=== PATIENT | female | born 1930 | race Caucasian/White ===

== ENCOUNTER 2017-03-01 10:09 | Emergency (ER) | payer MEDICARE, OTHER ==
[~2017-03-01] VITALS: Ht 167.6 cm; Wt 79.0 kg
[~2017-03-01 10:09] MED LIST: HYZA100T4 PO; SYNT25TA PO
[2017-03-01] MEDS ORDERED: HYZA100T2 PO (10:16)
[2017-03-01] MEDS ORDERED: SYNT25TA PO (10:16)
[2017-03-01 10:17] VITALS: BP 180/76; PULSE 72; RESP 16; TEMP 98; O2SAT 96
[2017-03-01] MEDS ORDERED: ASPIRIN 81 MG CHEW TAB PO ONE (10:30)
[2017-03-01] MEDS ORDERED: SODIUM CHLORIDE 0.9% FLUSH 10 ML FLUSH IVF PRN (10:30)
[2017-03-01] MEDS ORDERED: NITROGLYCERIN 0.4 MG SL 25 TABS/BTL SL ONE (10:30)
--- NOTE | 2017-03-01 10:32 | PD ---
HPI Chief Complaint: Chest Pain Time Seen by Provider: 10:15 Travel History International Travel<30 days: No Contact w/Intl Traveler<30days: No Traveled to known affect area: No History of Present Illness HPI This is an 86-year-old female who presents to the emergency department with chest discomfort in her left chest described as twinges of pain that lasts for several seconds and then subsides radiating to her left arm. She says it happens at rest. She denies any associated shortness of breath, nausea or diaphoresis. She feels well otherwise and just put down 110 pounds of mulch in her yard. She's never had a stress test. She is very healthy. She does have a history of hypertension for which she takes Cozaar. She denies any history of diabetes, hyperlipidemia and she has never smoked or drank alcohol. PFSH Past Medical History Hx Anticoagulant Therapy: No Cancer: No Cardiovascular Problems: Yes (HTN) Diabetes: No Diminished Hearing: No Diverticulitis: Yes Endocrine: Yes Gastrointestinal Disorders: No Genitourinary: No Hypertension: Yes Implanted Vascular Access Dvce: No Musculoskeletal: No (PAGETS DISEASE. ) Neurologic: No Psychiatric: No Reproductive: No Respiratory: Yes (COUGH SINCE CHILDHOOD) Thyroid Disease: Yes Tetanus Vaccination: < 5 Years ?: Not Menopausal: Yes Past Surgical History Appendectomy: Yes Cholecystectomy: Yes Hysterectomy: Yes Other Surgery: No Social History Alcohol Use: No Tobacco Use: No Substance Use: No Allergies-Medications (Allergen,Severity, Reaction): Coded Allergies: Penicillin (Verified Allergy, Severe, 03/01/17) Reported Meds & Prescriptions Reported Meds & Active Scripts Active Reported Hyzaar (Losartan-Hydrochlorothiazide) 100-12.5 Mg Tab 1 Tab PO DAILY Synthroid (Levothyroxine Sodium) 25 Mcg Tab 25 Mcg PO DAILY Review of Systems Except as stated in HPI: all other systems reviewed are Neg Physical Exam Narrative GENERAL:Well appearing, no acute distress SKIN: Focused skin assessment warm and dry. HEAD: Atraumatic. Normocephalic. EYES: Pupils equal and round. No injection or drainage. ENT: Moist mucous membranes NECK: Trachea midline. CARDIOVASCULAR: Regular rate and rhythm. No murmur appreciated. RESPIRATORY: Clear to auscultation. Breath sounds equal bilaterally. GASTROINTESTINAL: Abdomen soft, non-tender, nondistended. MUSCULOSKELETAL: No obvious deformities. NEUROLOGICAL: Awake and alert. No obvious cranial nerve deficits. Moving all extremities. PSYCHIATRIC: Appropriate mood and affect; insight and judgment normal. Data Data Last Documented VS Vital Signs Date Time Temp Pulse Resp B/P Pulse Ox O2 Delivery O2 Flow Rate FiO2 03/01/17 10:38 63 16 131/67 96 Nasal Cannula 2 114/62 03/01/17 10:17 98.0 Orders Electrocardiogram (03/01/17 10:25) Complete Blood Count With Diff (03/01/17 10:25) Comprehensive Metabolic Panel (03/01/17 10:25) Troponin I (03/01/17 10:25) Chest, Single Ap (03/01/17 10:25) Ecg Monitoring (03/01/17 10:25) Bilateral Bp Monitoring (03/01/17 10:25) Iv Access Insert/Monitor (03/01/17 10:25) Oximetry (03/01/17 10:25) Oxygen Administration (03/01/17 10:25) Aspirin Chew (Aspirin Chew) (03/01/17 10:30) Sodium Chloride 0.9% Flush (Ns Flush) (03/01/17 10:30) Nitroglycerin Sl (Nitrostat Sl) (03/01/17 10:30) Labs Laboratory Tests Test 03/01/17 10:25 White Blood Count 5.8 TH/MM3 Red Blood Count 4.81 MIL/MM3 Hemoglobin 14.7 GM/DL Hematocrit 44.0 % Mean Corpuscular Volume 91.3 FL Mean Corpuscular Hemoglobin 30.5 PG Mean Corpuscular Hemoglobin 33.4 % Concent Red Cell Distribution Width 13.3 % Platelet Count 193 TH/MM3 Mean Platelet Volume 9.3 FL Neutrophils (%) (Auto) 53.5 % Lymphocytes (%) (Auto) 33.3 % Monocytes (%) (Auto) 8.4 % Eosinophils (%) (Auto) 3.6 % Basophils (%) (Auto) 1.2 % Neutrophils # (Auto) 3.1 TH/MM3 Lymphocytes # (Auto) 1.9 TH/MM3 Monocytes # (Auto) 0.5 TH/MM3 Eosinophils # (Auto) 0.2 TH/MM3 Basophils # (Auto) 0.1 TH/MM3 CBC Comment DIFF FINAL Differential Comment Sodium Level 142 MEQ/L Potassium Level 3.7 MEQ/L Chloride Level 106 MEQ/L Carbon Dioxide Level 29.3 MEQ/L Anion Gap 7 MEQ/L Blood Urea Nitrogen 19 MG/DL Creatinine 0.93 MG/DL Estimat Glomerular Filtration 57 ML/MIN Rate Random Glucose 106 MG/DL Calcium Level 9.1 MG/DL Total Bilirubin 0.4 MG/DL Aspartate Amino Transf 19 U/L (AST/SGOT) Alanine Aminotransferase 22 U/L (ALT/SGPT) Alkaline Phosphatase 154 U/L Troponin I LESS THAN 0.02 NG/ML Total Protein 7.7 GM/DL Albumin 4.0 GM/DL MDM Medical Decision Making Medical Screen Exam Complete: Yes Emergency Medical Condition: Yes Interpretation(s) Afebrile, no tachycardia, hypertensive No leukocytosis Electrolytes are reassuring Troponin is normal Chest x-ray: No acute process EKG: Normal sinus rhythm with no ST changes Differential Diagnosis Acute coronary syndrome, GERD, pulmonary embolism, anxiety Narrative Course This is a vibrant 86-year-old female who presents to the emergency department with atypical left-sided. She was placed on a monitor and an IV was established. EKG was nonischemic. She was given aspirin and nitroglycerin. Labs were obtained which were reassuring. She has a HEART score of 3 placing her in a low risk category for acute coronary syndrome. I had a long conversation with the patient. I offered her observation for stress testing. She really doesn't want to stay in the hospital. She says whatever happens "is in the Lord's hands". I still encouraged her to get a stress test as an outpatient. Patient will be discharged to her preference to follow-up with her primary care physician. Diagnosis Primary Impression: Atypical chest pain Patient Instructions: General Instructions Additional Instructions: If you develop severe chest pain, shortness of breath, sweating, lightheadedness , dizziness or difficulty breathing return to the emergency department immediately. Followup with your primary care physician in 2-3 days if your symptoms are not resolved. Get a stress test done by your primary care physician. Med/Other Pt SpecificInfo: No Change to Meds Disposition: 01 DISCHARGE HOME Condition: Stable Amee Skinner MD Mar 01, 2017 10:32
[2017-03-01 10:35] VITALS: RESP 16; O2SAT 95
[2017-03-01 10:37] LABS: AUTOMATED NEUTROPHIL # 3.1 TH/MM3 (1.8-7.7); BASOPHIL # 0.1 TH/MM3 (0-0.2); BASOPHIL % 1.2 % (0.0-2.0); EOSINOPHIL # 0.2 TH/MM3 (0-0.4); EOSINOPHIL % 3.6 % (0.0-4.0); HEMO FLAGS DIFF FINAL; LYMPH % 33.3 % (9.0-44.0); LYMPHOCYTE # 1.9 TH/MM3 (1.0-4.8); MEAN CELL VOLUME 91.3 FL (80.0-100.0); MEAN CORPUSCULAR HEMOGLOBIN 30.5 PG (27.0-34.0); MEAN CORPUSCULAR HGB CONC 33.4 % (32.0-36.0); MONO % 8.4 % (0.0-8.0); NEUT % 53.5 % (16.0-70.0); PLATELET COUNT 193 TH/MM3 (150-450); RED BLOOD COUNT 4.81 MIL/MM3 (4.00-5.30); RED CELL DISTRIBUTION WIDTH 13.3 % (11.6-17.2); WHITE BLOOD COUNT 5.8 TH/MM3 (4.0-11.0)
[2017-03-01 10:38] VITALS: BP_SYST 114; BP_SYST 131; BP_DIAS 62; BP_DIAS 67; PULSE 63; RESP 16; O2SAT 96
[2017-03-01 10:46] LABS: CHLORIDE 106 MEQ/L (98-107); POTASSIUM 3.7 MEQ/L (3.5-5.1); SODIUM (NA) 142 MEQ/L (136-145)
--- NOTE | 2017-03-01 10:47 | RADRPT ---
EXAM DATE/TIME: 03/01/2017 10:31 [facility] COMPARISON: CHEST SINGLE AP, July 07, 2013, 7:45. INDICATIONS : Left side chest pain x 2 days. MEDICAL HISTORY : Hypertension. Diverticulitis. Thyroid disease. Padget's disease. SURGICAL HISTORY : Appendectomy. Cholecystectomy. Hysterectomy. ENCOUNTER: Initial ACUITY: 2 days PAIN SCORE: 6/10 LOCATION: chest FINDINGS: A single view of the chest demonstrates the lungs to be symmetrically aerated without evidence of mas s, infiltrate or effusion. The cardiomediastinal contours are unremarkable. Osseous structures are intact. CONCLUSION: 1. No acute cardiopulmonary disease. Marquis Contreras MD on March 01, 2017 at 10:45 Board Certified Radiologist. This report was verified electronically.
[2017-03-01 10:50] LABS: ANION GAP 7 MEQ/L (5-15); BICARBONATE 29.3 MEQ/L (21.0-32.0); BLOOD UREA NITROGEN 19 MG/DL (7-18)
[2017-03-01 10:53] LABS: ALT (GPT) 22 U/L (10-53); AST (GOT) 19 U/L (15-37); GLOMERULAR FILTRATION RATE 57 ML/MIN (>89)
[2017-03-01 10:54] LABS: TOTAL BILIRUBIN ADULT 0.4 MG/DL (0.2-1.0)
[2017-03-01 10:56] LABS: ALKALINE PHOSPHATASE 154 U/L (45-117)
[2017-03-01 11:35] VITALS: BP 121/61; PULSE 59; RESP 16; O2SAT 97
--- NOTE | 2017-03-02 14:54 | EKG ---
Date Performed: 03/01/2017 Time Performed: 10:16:36 PTAGE: 86 years EKG: Sinus rhythm NORMAL ECG PREVIOUS TRACING : 12/06/2010 05.03 Since previous tracing, no significant change noted DOCTOR: Ca Lovelace Interpretating Date/Time 03/02/2017 14:53:05
== END 2017-03-01 11:40 | disposition home or self-care (01) ==
LOC: PHED 10:09
DX: R07.89 Other chest pain (principal); I10 Essential (primary) hypertension; Z88.0 Allergy status to penicillin
CPT/HCPCS: 71010; 80053; 84484; 85025; 93005; 99285

== ENCOUNTER 2017-05-13 08:57 | Emergency (ER) | payer MEDICARE, OTHER ==
[~2017-05-13] VITALS: Ht 165.1 cm; Wt 78.2 kg
[~2017-05-13 08:57] MED LIST changes: +HYZA100T2 PO; -HYZA100T4 PO
[2017-05-13 09:04] VITALS: BP 159/75; PULSE 90; RESP 16; TEMP 97.8; O2SAT 95
--- NOTE | 2017-05-13 09:56 | PD ---
HPI Chief Complaint: Cold / Flu Symptoms Time Seen by Provider: 09:19 Travel History International Travel<30 days: No Contact w/Intl Traveler<30days: No Traveled to known affect area: No History of Present Illness HPI Send 86 year-old woman presents to the emergency department complaining of 2 weeks of increased cough, productive of some sputum, with congestion. She has a chronic cough for most of her life of unclear etiology. She had whooping cough when she was little. She is feeling she's having paroxysmal runs of harsh cough with some whooping now. No fevers or chills. No sick contacts. She otherwise has been feeling generally well. Review systems positive for little bit constipation some right knee pain. History Past Medical History Narrative Medical Hypertension Hypothyroidism Menopausal: Yes Social History Alcohol Use: No Tobacco Use: No Allergies-Medications (Allergen,Severity, Reaction): Coded Allergies: penicillin G (Unverified Allergy, Severe, swelling, 05/13/17) Reported Meds & Prescriptions Reported Meds & Active Scripts Active Reported Hyzaar (Losartan-Hydrochlorothiazide) 100-12.5 Mg Tab 1 Tab PO DAILY Synthroid (Levothyroxine Sodium) 25 Mcg Tab 25 Mcg PO DAILY Review of Systems Except as stated in HPI: all other systems reviewed are Neg Physical Exam Narrative GENERAL: Well-appearing 86 year-old woman, no acute distress. SKIN: Focused skin assessment warm/dry. HEAD: Atraumatic. Normocephalic. EYES: Pupils equal and round. No scleral icterus. No injection or drainage. ENT: No nasal bleeding or discharge. Mucous membranes pink and moist. TMs normal. Throat is normal. NECK: Trachea midline. No JVD. CARDIOVASCULAR: Regular rate and rhythm. No murmur appreciated. RESPIRATORY: No accessory muscle use. Clear to auscultation. Breath sounds equal bilaterally. GASTROINTESTINAL: Abdomen soft, non-tender, nondistended. Hepatic and splenic margins not palpable. MUSCULOSKELETAL: No obvious deformities. No clubbing. No cyanosis. No edema. NEUROLOGICAL: Awake and alert. No obvious cranial nerve deficits. Motor grossly within normal limits. Normal speech. PSYCHIATRIC: Appropriate mood and affect; insight and judgment normal. Data Data Last Documented VS Vital Signs Date Time Temp Pulse Resp B/P (MAP) Pulse Ox O2 Delivery O2 Flow Rate FiO2 05/13/17 09:04 97.8 90 16 159/75 (103) 95 Orders Orders Chest, Single Ap (05/13/17 ) [facility] Medical Decision Making Medical Screen Exam Complete: Yes Emergency Medical Condition: Yes Interpretation(s) Chest x-ray negative Differential Diagnosis Cough, pneumonia, reflux, URI, other Narrative Course Medical decision making INITIAL: Well-appearing 86 year-old woman presents to the emergency department with 2 weeks of cough cold. Seems like URI symptoms. She has chronic coughing GERD symptoms that may actually be tied together. No paroxims a cough in the ED. Diagnosis Primary Impression: Acute bronchitis Additional Instructions: Follow-up with your primary physician in 2-4 days. If you're not improving after 3-5 days, take azithromycin as prescribed. Return to the emergency department for any worsening trouble breathing, or any other new or worsening symptoms. Med/Other Pt SpecificInfo: Prescription(s) given Scripts Azithromycin (Azithromycin) 250 Mg Tab 250 MG PO DIRECTED for Infection, #6 TAB 0 Refills Take 2 tabs (500 mg) on day 1 then 1 tab daily x 4 days. Prov: Андрей Hinton MD 05/13/17 Disposition: 01 DISCHARGE HOME Condition: Stable Андрей Hinton MD May 13, 2017 09:56
--- NOTE | 2017-05-13 10:02 | RADRPT ---
EXAM DATE/TIME: 05/13/2017 09:47 [facility] COMPARISON: CHEST SINGLE AP, March 01, 2017, 10:31. INDICATIONS : Cough and congestion. MEDICAL HISTORY : None. SURGICAL HISTORY : None. ENCOUNTER: Initial ACUITY: 3 days PAIN SCORE: 5/10 LOCATION: Bilateral chest FINDINGS: A single view of the chest demonstrates the lungs to be symmetrically aerated without evidence of mas s, infiltrate or effusion. The cardiomediastinal contours are unremarkable. Osseous structures are intact. CONCLUSION: No acute disease. No significant change has occurred. Michael Haile MD on May 13, 2017 at 10:00 Board Certified Radiologist. This report was verified electronically.
[2017-05-13] MEDS ORDERED: AZIT250T3 PO (10:20)
== END 2017-05-13 10:33 | disposition home or self-care (01) ==
LOC: PHED 08:57
DX: J20.9 Acute bronchitis, unspecified (principal); Z88.0 Allergy status to penicillin
CPT/HCPCS: 71010; 99283